=== PATIENT | female | born 1980 | race Caucasian/White ===

== ENCOUNTER 2018-06-05 18:38 | Emergency (ER) | payer SELFPAY ==
[2015-05-29 19:58] VITALS: BP 102/65
[2018-06-05] MEDS ORDERED: TETANUS AND DIPHTHERIA TOX/PF 0.5 ML VIAL. VAX IM ONE ×2 (18:56→19:00)
[2018-06-05] MEDS ORDERED: SMZ/TMP 800/160MG TABLET. PO ONE (19:00)
== END 2018-06-05 19:10 | disposition home or self-care (01) ==
LOC: ER 18:38
DX: L03.115 Cellulitis of right lower limb (principal); S90.561A Insect bite (nonvenomous), right ankle, initial encounter; W57.XXXA Bitten or stung by nonvenomous insect and other nonvenomous arthropods, initial encounter; Y93.89 Activity, other specified; Y99.8 Other external cause status; Y92.89 Other specified places as the place of occurrence of the external cause
CPT/HCPCS: 90471; 90714; 99283-25

== ENCOUNTER 2019-03-23 00:21 | Emergency (ER) | payer OTHER ==
[~2019-03-23] VITALS: Ht 170.2 cm; Wt 88.9 kg
[2019-03-23] MEDS ORDERED: ORPHENADRINE CITRATE 60 MG/2 ML VIAL. IM ONE (01:30)
[2019-03-23] MEDS ORDERED: KETOROLAC 30 MG/ML VIAL. IM ONE (01:30)
[2019-03-23] MEDS ORDERED: NAPR-683 PO (01:59)
[2019-03-23] MEDS ORDERED: CYCL-331 PO (01:59)
--- NOTE | 2019-03-23 01:59 | PHYS DOC ---
Past History Past Medical History: No Pertinent History Past Surgical History: No Surgical History Smoking: Non-smoker Alcohol Use: None Drug Use: None Adult General Chief Complaint Chief Complaint: HEADACHE HPI HPI Patient is a 38 year old female who presents with complaint of headache. Patient states that her symptoms started tonight and woke her from sleep. She notes that she started having tightness to her neck which radiated towards her scalp. Denies any associated fever, vomiting, loss of vision, difficulty with speech or swallowing, or unilateral weakness. Patient states she took ibuprofen with no significant relief in symptoms. Denies history of migraines. Patient drove herself to the emergency department to have her headache evaluated. Denies any difficulty with balance or ambulation. Has not had any recent neck adjustments or visits to the chiropractor. Review of Systems Review of Systems Constitutional: Denies fever or chills [] Eyes: Denies change in visual acuity, redness, or eye pain [] HENT: Denies nasal congestion or sore throat [] Respiratory: Denies cough or shortness of breath [] Cardiovascular: Denies chest pain or edema[] GI: Denies abdominal pain, nausea, vomiting, bloody stools or diarrhea [] : Denies dysuria or hematuria [] Musculoskeletal: Denies back pain or joint pain [] Integument: Denies rash or skin lesions [] Neurologic: Headache, denies focal weakness or sensory changes [] All other systems were reviewed and found to be within normal limits, except as documented in this note. Current Medications Current Medications Current Medications Medications (Trade) Dose Ordered Sig/[facility] Start Time Stop Time Status Last Admin Dose Admin Ketorolac Tromethamine (Toradol 30mg Vial) 30 mg 1X ONCE 03/23/19 01:30 03/23/19 01:31 DC 03/23/19 01:31 30 MG Orphenadrine Citrate (Norflex) 60 mg 1X ONCE 03/23/19 01:30 03/23/19 01:31 DC 03/23/19 01:32 60 MG Allergies Allergies Allergies Coded Allergies Type Severity Reaction Last Updated Verified No Known Drug Allergies 03/15/14 No Physical Exam Physical Exam Constitutional: Alert, afebrile, no acute distress, appears in mild discomfort. [] HENT: Normocephalic, atraumatic, bilateral external ears normal, oropharynx moist, no oral exudates, nose normal. [] Eyes: PERRLA, EOMI, conjunctiva normal, no discharge. [] Neck: Normal range of motion, tenderness to palpation along bilateral paraspinous musculature, no midline tenderness, supple, no stridor. [] Cardiovascular:Heart rate regular rhythm, no murmur [] Lungs & Thorax: Bilateral breath sounds clear to auscultation [] Abdomen: Bowel sounds normal, soft, no tenderness, no masses, no pulsatile masses. [] Skin: Warm, dry, no erythema, no rash. [] Back: No tenderness, no CVA tenderness. [] Extremities: No tenderness, no cyanosis, no clubbing, ROM intact, no edema. [] Neurologic: Alert and oriented X 3, normal motor function, normal sensory function, no focal deficits noted. [] Current Patient Data Vital Signs Vital Signs Date Time Temp Pulse Resp B/P (MAP) Pulse Ox O2 Delivery O2 Flow Rate FiO2 03/23/19 00:21 97.7 71 18 95 Room Air Lab Results Not performed EKG EKG Not performed[] Radiology/Procedures Radiology/Procedures Not performed[] Course & Med Decision Making Course & Med Decision Making Pertinent Labs and Imaging studies reviewed. (See chart for details) Patient's examination appears consistent with a tension type headache. Was treated with Norflex and Toradol in the emergency department with improvement symptoms. Prescribed Flexeril and Naprosyn for continued outpatient treatment. Advised follow-up with primary doctor in 3 days for reevaluation. Advised return to emergency department for any worsening symptoms. Patient was understanding and in agreement with treatment plan.[] Dragon Disclaimer Dragon Disclaimer This electronic medical record was generated, in whole or in part, using a voice recognition dictation system. Departure Departure: Impression: Primary Impression: Tension type headache Disposition: HOME, SELF-CARE Condition: IMPROVED Referrals: PCP,LAUREN (PCP) Patient Instructions: Tension Headache Additional Instructions: Follow-up with your primary doctor in the next 3 days for reevaluation. Return to the emergency department for any worsening symptoms. Scripts Naproxen (NAPROSYN) 500 Mg Tablet 1 TAB PO BID, #20 TAB 0 Refills Prov: MARCIAL RAED MD 03/23/19 Cyclobenzaprine Hcl (CYCLOBENZAPRINE HCL) 10 Mg Tablet 1 TAB PO TID PRN for MUSCLE PAIN, #20 TAB Prov: MARCIAL READ MD 03/23/19 Problem Qualifiers Primary Impression: Tension type headache Headache chronicity pattern: episodic headache Intractability: not intractable Qualified Codes: G44.219 - Episodic tension-type headache, not intractable MARCIAL READ MD Mar 23, 2019 01:59
[2019-03-23 02:05] VITALS: BP 111/68
== END 2019-03-23 02:05 | disposition home or self-care (01) ==
LOC: ER 00:21
DX: G44.219 Episodic tension-type headache, not intractable (principal); M54.2 Cervicalgia
CPT/HCPCS: 96372; 99284; J1885; J2360

== ENCOUNTER 2019-08-17 09:25 | Emergency (ER) | payer OTHER ==
[~2019-08-17] VITALS: Ht 167.6 cm; Wt 77.1 kg
[~2019-08-17 09:25] MED LIST: CYCL-331 PO; NAPR-683 PO
[2019-08-17 09:30] VITALS: BP 122/68
--- NOTE | 2019-08-17 09:37 | PHYS DOC ---
Past History Past Medical History: No Pertinent History Past Surgical History: No Surgical History Smoking: Non-smoker Alcohol Use: None Drug Use: None Adult General Chief Complaint Chief Complaint: FOOT INJURY PAIN HPI HPI Patient is a 38-year-old female who presents to the emergency department for evaluation. She states that she has been doing a lot of walking with her father, and over the past week has developed pain in her right heel, worse with ambulation. She also works on a concrete floor, and is on her feet a lot and despite using padded insoles, has pain with walking. She has been taking ibuprofen with some mild improvement. She denies any numbness, weakness, or any discrete injury. Ambulation and palpation worsen her pain. There are no alleviating factors to her symptoms. Review of Systems Review of Systems Constitutional: Denies fever or chills [] Eyes: Denies change in visual acuity, redness, or eye pain [] HENT: Denies nasal congestion or sore throat [] Respiratory: Denies cough or shortness of breath [] Musculoskeletal: Denies back pain or joint pain [] Neurologic: Denies headache, focal weakness or sensory changes [] Allergies Allergies Allergies Coded Allergies Type Severity Reaction Last Updated Verified No Known Drug Allergies 03/15/14 No Physical Exam Physical Exam PHYSICAL EXAM: HEENT: Atruamatic NECK: Supple, normal ROM, non-tender. CARDIAC: Regular Rate and Rhythm LUNGS: Clear Bilaterally EXTREMITIES: There are mild calluses on the heel and ball of the foot, with some diffuse tenderness to palpation to the right heel, without any warmth, erythema, or any other skin abnormality. There is no definite bony tenderness to palpation. The soft tissues of the arch of the foot and plantar fascia are relatively nontender. The Achilles heel and posterior aspect of the calcaneus, as well as the ankle is nontender. There is a strong dorsalis pedis pulse. The remainder of the extremities are unremarkable. EKG EKG [] Radiology/Procedures Radiology/Procedures PROCEDURE: FOOT RIGHT 3V Three-view right foot study Clinical indications: Heel pain. FINDINGS: No acute fracture or dislocation or lytic process is evident. No plantar spur of the calcaneus is evident. IMPRESSION: No acute fracture. [] Course & Med Decision Making Course & Med Decision Making Pertinent Imaging studies reviewed. (See chart for details) []Discussed test results with the patient, the need for podiatry follow-up, and return precautions. Dragon Disclaimer Dragon Disclaimer This electronic medical record was generated, in whole or in part, using a voice recognition dictation system. Departure Departure: Impression: Primary Impression: Foot pain Additional Impression: Overuse syndrome of foot Disposition: 01 HOME, SELF-CARE Condition: STABLE Referrals: PCP,NO (PCP) Patient Instructions: Foot Sprain Additional Instructions: Continue the use of ibuprofen, 400-600 mg as needed for pain. Follow-up with podiatry, call [facility], at [phone] Problem Qualifiers NANCY WOMACK MD Aug 17, 2019 09:37
--- NOTE | 2019-08-17 09:59 | RAD ---
Three-view right foot study Clinical indications: Heel pain. FINDINGS: No acute fracture or dislocation or lytic process is evident. No plantar spur of the calcaneus is evident. IMPRESSION: No acute fracture. Electronically signed by: Giovanni Walter MD (08/17/2019 9:56 AM) [id number]
== END 2019-08-17 10:10 | disposition home or self-care (01) ==
LOC: ER 09:25
DX: M79.671 Pain in right foot (principal); M70.871 Other soft tissue disorders related to use, overuse and pressure, right ankle and foot; Y93.01 Activity, walking, marching and hiking
CPT/HCPCS: 73630; 99284